=== PATIENT | female | born 1975 | race Caucasian/White ===

== ENCOUNTER 2017-11-16 05:25 | Day surgery (SDC) | payer BC ==
[~2017-11-16] VITALS: Ht 165.1 cm; Wt 96.6 kg
[2017-11-16] MEDS ORDERED: CEFAZOLIN SOD 1 GM/ ISO 50 ML PREMIX IV ONE (07:00)
[2017-11-16] MEDS ORDERED: HYDROmorphone 2 MG/ML VIAL IVP PRN (08:15)
[2017-11-16] MEDS ORDERED: HYDROmorphone 1 MG INJ. 1 MG/ML AMPUL IVP PRN ×2 (08:15)
[2017-11-16] MEDS ORDERED: LR 1,000 ML IV SCH (08:15)
[2017-11-16] MEDS ORDERED: METOCLOPRAMIDE HCL 10 MG/2 ML VIAL IVP PRN (08:15)
[2017-11-16] MEDS ORDERED: PHENYLEPHRINE HCL 10 MG/ML VIAL (NEOSYNEPHRINE) ONE (10:00)
[2017-11-16] MEDS ORDERED: ONDANSETRON HCL 4 MG/2 ML VIAL IVP PRN (10:00)
[2017-11-16] MEDS ORDERED: OXYCODONE/ACETAMINOPHEN 5-325 TABLET PO PRN ×2 (10:00)
[2017-11-16] MEDS ORDERED: ONDANSETRON HCL 4 MG/2 ML VIAL ONE ×2 (10:00→13:08)
[2017-11-16] MEDS ORDERED: HYDROcodone/ACETAMIN 5-325 MG TAB (NORCO/ VICODIN) PO PRN (10:00)
[2017-11-16] MEDS ORDERED: SEVOFLURANE 15 MIN GAS INH ONE (10:00)
[2017-11-16] MEDS ORDERED: BUPIVACAINE /EPINEPHRINE/PF 0.5% 30 ML VIAL INJ ONE (10:00)
[2017-11-16] MEDS ORDERED: SODIUM BICARBONATE 4% (NEUT) 5 ML VIAL ONE (10:00)
[2017-11-16] MEDS ORDERED: ATROPINE SULFATE 0.4 MG/ML VIAL ONE (10:00)
[2017-11-16] MEDS ORDERED: GLYCOPYRROLATE 0.2 MG/ML VIAL ONE (10:00)
[2017-11-16] MEDS ORDERED: ROPIVACAINE 0.2% (NAROPIN) PF SOLUTION 100 ML BOTTLE ONE (10:00)
[2017-11-16] MEDS ORDERED: fentaNYL CITRATE 250 MCG/5 ML AMP ONE (10:00)
[2017-11-16] MEDS ORDERED: NS IRRIG SOLN 1000 ML IR ONE (10:00)
[2017-11-16] MEDS ORDERED: DEXTROSE 50% JECT 50 ML DISP.SYRIN ONE (10:00)
[2017-11-16] MEDS ORDERED: MIDAZOLAM HCL 5 MG/ML VIAL (VERSED) IV ONE (10:00)
[2017-11-16] MEDS ORDERED: FUROSEMIDE 20 MG/2 ML VIAL ONE (10:00)
[2017-11-16] MEDS ORDERED: ROCURONIUM BROMIDE 10 MG/ML (ZEMURON) ONE (10:00)
[2017-11-16] MEDS ORDERED: KETOROLAC TROMETHAMINE 30 MG VIAL ONE (10:00)
[2017-11-16] MEDS ORDERED: NS 1000 ML BAG IV ONE (10:00)
[2017-11-16] MEDS ORDERED: LR 1,000 ML IV.SOLN IV ONE (10:00)
[2017-11-16] MEDS ORDERED: NEOSTIGMINE METHYLSULFATE 1 MG/ML, 10 ML VIAL ONE (10:00)
[2017-11-16] MEDS ORDERED: LIDOCAINE 2%, 20 ML MDV ONE (10:00)
[2017-11-16] MEDS ORDERED: PROPOFOL 200MG/ 20ML VIAL (DIPRIVAN) IV ONE (10:00)
[2017-11-16] MEDS ORDERED: HYDROmorphone 2 MG/ML VIAL ONE (11:06)
[2017-11-16 11:51] VITALS: BP_SYST 100
[2017-11-16] MEDS ORDERED: CEFAZOLIN 1 GM IVPB PREMIX 50 ML IV ONE (13:00)
== END 2017-11-16 16:35 | disposition home or self-care (01) ==
LOC: SDS 05:25 → SMU 05:25 → SDS 16:35
PROVIDERS: ATTEND Specialist
DX: N88.8 Other specified noninflammatory disorders of cervix uteri (principal); N81.6 Rectocele; Z90.49 Acquired absence of other specified parts of digestive tract; Z98.890 Other specified postprocedural states; Z68.35 Body mass index [BMI] 35.0-35.9, adult; Z79.899 Other long term (current) drug therapy; E66.01 Morbid (severe) obesity due to excess calories
CPT/HCPCS: 58552; 88307; C1727; J0461; J0690; J1170; J1885; J1940; J2001; J2250; J2370; J2405; J2704; J2710; J2795; J3010; J3490 ×2; J7030; J7120; E0190